=== PATIENT | male | born 1940 | race Caucasian/White ===

== ENCOUNTER 2021-11-12 19:43 | Inpatient (IN) ==
[2021-11-12] MEDS ORDERED: Iohexol 350 (CONTRAST) 500 ML MDV IV ONE (20:11)
[2021-11-12 20:33] LABS: ABS Lymphocytes 0.9 10^3/ul (1.0-4.8); ABS Monocytes 0.9 10^3/ul (0-0.8); ABS Neutrophils 9.4 10^3/ul (1.5-7.7); Eosinophil % 0.3 %; Hematocrit 30 % (42-52); Hemoglobin 10.1 g/dL (14.0-18.0); Lymphocyte % 8.3 %; Mean Corpuscular HGB Conc 34 g/dL (31-36); Mean Corpuscular Hemoglobin 33 pg (27-31); Mean Corpuscular Volume 97 fL (80-94); Mean Platelet Volume 8.1 fL (7.4-10.4); Platelet Count 207 10^3/uL (150-450); Red Blood Count 3.12 10^6 /uL (4.18-5.48); Red Cell Distribution Width 15 % (10-15); White Blood Count 11.4 10^3/uL (3.5-10.8)
[2021-11-12 20:50] LABS: Activated Partial Thrombo Time 27.4 seconds (26.0-38.0); INR 1.07 (0.86-1.15)
[2021-11-12 22:07] LABS: Albumin 3.8 g/dL (3.2-5.2); Albumin/Globulin Ratio 1.7 (1-3); Globulin 2.3 g/dL (2-4); HDL Cholesterol 50.2 mg/dL; Potassium 3.9 mmol/L (3.5-5.0); Total Bilirubin 1.1 mg/dL (0.2-1.0); Total Protein 6.1 g/dL (6.4-8.9); eGFR CKD-EPI 76.5 (>60)
[2021-11-12] MEDS ORDERED: Ondansetron 4 mg VIAL 2 MG/ML 2 ml VIAL IV PRN (22:45)
[2021-11-13 00:40] LABS: High Sensitivity Troponin 1 Hr 122 pg/mL (<20)
[2021-11-13 01:59] LABS: Urine Appearance Clear; Urine Bilirubin Negative (Negative); Urine Blood 2+ (Negative); Urine Color Yellow; Urine Glucose Negative (Negative); Urine Ketones Negative (Negative); Urine Nitrite Negative (Negative); Urine Protein Negative (Negative); Urine Specific Gravity 1.039 (1.002-1.030); Urine Urobilinogen Negative (Negative)
[2021-11-13 02:05] LABS: Urine Bacteria Absent (Absent); Urine Red Blood Cell Absent (Absent); Urine White Blood Cell Absent (Absent)
[2021-11-13] MEDS: Nystatin TOP POWDER 15 GM BTL TOPICAL SCH ×2 (09:27→21:40)
[2021-11-13 10:15] LABS: ABS Basophils 0.1 10^3/ul (0-0.2); ABS Eosinophils 0.1 10^3/ul (0-0.6); ABS Monocytes 0.7 10^3/ul (0-0.8); ABS Neutrophils 4.7 10^3/ul (1.5-7.7); Eosinophil % 1.8 %; Hematocrit 35 % (42-52); Hemoglobin 11.6 g/dL (14.0-18.0); Lymphocyte % 15.5 %; Mean Corpuscular HGB Conc 33 g/dL (31-36); Mean Corpuscular Hemoglobin 32 pg (27-31); Mean Corpuscular Volume 97 fL (80-94); Mean Platelet Volume 8.6 fL (7.4-10.4); Nucleated Red Blood Cells % 0.1; Platelet Count 214 10^3/uL (150-450); Red Cell Distribution Width 15 % (10-15); White Blood Count 6.6 10^3/uL (3.5-10.8)
[2021-11-13 10:23] LABS: ALT 32 U/L (7-52); AST 98 U/L (13-39); Albumin 3.7 g/dL (3.2-5.2); Albumin/Globulin Ratio 1.6 (1-3); Alkaline Phosphatase 77 U/L (35-149); Anion Gap 8 mmol/L (2-11); Blood Urea Nitrogen 17 mg/dL (6-24); CO2 Carbon Dioxide 26 mmol/L (22-32); Chloride 103 mmol/L (101-111); Globulin 2.3 g/dL (2-4); Glucose 86 mg/dL (70-100); Magnesium 1.9 mg/dL (1.9-2.7); Potassium 4.1 mmol/L (3.5-5.0); Sodium 137 mmol/L (135-145); eGFR CKD-EPI 90.7 (>60)
[2021-11-13 11:26] LABS: High Sensitivity Troponin 1 Hr 94 pg/mL (<20)
[2021-11-13] MEDS ORDERED: Perflutren Lipid Microsphere 3 ML VIAL ONE (12:17)
[2021-11-13 13:28] LABS: High Sensitivity Troponin 3 Hr 97 pg/mL (<20)
[2021-11-13 20:55] LABS: % Iron Saturation 31 % (15-55); Iron 80 ug/dL (50-212); Total Iron Binding Capacity 258 mcg/dL (250-450); Transferrin 184 mg/dL (203-362); Unsaturated Iron Binding 178 ug/dL
[2021-11-13 21:21] LABS: Folate > 20.00 ng/mL (5.90-24.80)
[2021-11-13 21:22] LABS: Vitamin B12 544 pg/mL (180-914)
[2021-11-14 06:51] LABS: Hematocrit 36 % (42-52); Hemoglobin 12.1 g/dL (14.0-18.0); Mean Corpuscular HGB Conc 34 g/dL (31-36); Mean Corpuscular Hemoglobin 33 pg (27-31); Mean Corpuscular Volume 98 fL (80-94); Mean Platelet Volume 8.4 fL (7.4-10.4); Platelet Count 204 10^3/uL (150-450); Red Blood Count 3.67 10^6 /uL (4.18-5.48); Red Cell Distribution Width 15 % (10-15); White Blood Count 5.8 10^3/uL (3.5-10.8)
[2021-11-14 07:10] LABS: Calcium 9.4 mg/dL (8.6-10.3); Magnesium 2.1 mg/dL (1.9-2.7); Potassium 4.2 mmol/L (3.5-5.0); eGFR CKD-EPI 87.3 (>60)
[2021-11-14] MEDS: Enoxaparin 40 MG/0.4 ML SYR SUBCUT SCH (15:30)
[2021-11-14] MEDS: Nystatin TOP POWDER 15 GM BTL TOPICAL SCH ×2 (15:33→21:48)
[2021-11-15 05:34] LABS: ABS Eosinophils 0.2 10^3/ul (0-0.6); ABS Lymphocytes 2.2 10^3/ul (1.0-4.8); ABS Monocytes 0.6 10^3/ul (0-0.8); ABS Neutrophils 3.9 10^3/ul (1.5-7.7); Eosinophil % 2.7 %; Hematocrit 37 % (42-52); Hemoglobin 12.4 g/dL (14.0-18.0); Lymphocyte % 31.9 %; Mean Corpuscular HGB Conc 34 g/dL (31-36); Mean Corpuscular Hemoglobin 33 pg (27-31); Mean Corpuscular Volume 99 fL (80-94); Mean Platelet Volume 9.4 fL (7.4-10.4); Platelet Count 143 10^3/uL (150-450); Red Blood Count 3.73 10^6 /uL (4.18-5.48); Red Cell Distribution Width 15 % (10-15)
[2021-11-15 05:35] LABS: Blood Urea Nitrogen 22 mg/dL (6-24); CO2 Carbon Dioxide 27 mmol/L (22-32); Calcium 9.2 mg/dL (8.6-10.3); Chloride 104 mmol/L (101-111); Glucose 82 mg/dL (70-100); Sodium 138 mmol/L (135-145); eGFR CKD-EPI 87.6 (>60)
[2021-11-15 05:38] LABS: Anion Gap 7 mmol/L (2-11)
[2021-11-15 07:46] LABS: Magnesium 1.9 mg/dL (1.9-2.7); Potassium Redraw 4.3 mmol/L (3.5-5.0)
[2021-11-15] MEDS: Enoxaparin 40 MG/0.4 ML SYR SUBCUT SCH (15:13)
[2021-11-15] MEDS: Nystatin TOP POWDER 15 GM BTL TOPICAL SCH ×2 (15:16→22:27)
[2021-11-16 05:19] LABS: ABS Basophils 0.1 10^3/ul (0-0.2); ABS Eosinophils 0.2 10^3/ul (0-0.6); ABS Lymphocytes 2.2 10^3/ul (1.0-4.8); ABS Monocytes 0.6 10^3/ul (0-0.8); ABS Neutrophils 3.7 10^3/ul (1.5-7.7); Eosinophil % 3.1 %; Hematocrit 35 % (42-52); Lymphocyte % 32.2 %; Mean Corpuscular HGB Conc 34 g/dL (31-36); Mean Corpuscular Hemoglobin 33 pg (27-31); Mean Corpuscular Volume 98 fL (80-94); Mean Platelet Volume 8.5 fL (7.4-10.4); Platelet Count 214 10^3/uL (150-450); Red Blood Count 3.62 10^6 /uL (4.18-5.48); Red Cell Distribution Width 15 % (10-15); White Blood Count 6.9 10^3/uL (3.5-10.8)
[2021-11-16 05:42] LABS: Calcium 8.9 mg/dL (8.6-10.3); Magnesium 1.8 mg/dL (1.9-2.7); Potassium 4.3 mmol/L (3.5-5.0); eGFR CKD-EPI 80.4 (>60)
[2021-11-16] MEDS: Nystatin TOP POWDER 15 GM BTL TOPICAL SCH ×2 (09:56→23:56)
[2021-11-16] MEDS ORDERED: LORazepam 2 mg VIAL 1 ml IV PUSH ONE (13:06)
[2021-11-16] MEDS ORDERED: Lorazepam PYXIS KEY PRN (13:06)
[2021-11-16] MEDS: Enoxaparin 40 MG/0.4 ML SYR SUBCUT SCH (13:40)
[2021-11-17 06:39] LABS: Calcium 9.4 mg/dL (8.6-10.3); Potassium 4.4 mmol/L (3.5-5.0); eGFR CKD-EPI 81.4 (>60)
[2021-11-17] MEDS: Nystatin TOP POWDER 15 GM BTL TOPICAL SCH (09:33)
[2021-11-17 10:56] LABS: Rapid COVID-19 Molecular Undetected (Undetected)
[2021-11-17 15:13] VITALS: BP 113/63
== END 2021-11-17 14:00 | DRG 65 ==
LOC: ED 19:43 → EDHOLD 22:45 → SUATTDRO 22:45 → MEDTELE 11-13 02:40
PROVIDERS: ADMIT Student in an Organized Health Care Education/Training Program; ATTEND Student in an Organized Health Care Education/Training Program

== ENCOUNTER 2022-05-27 01:15 | Observation (INO) ==
[2022-05-27] MEDS ORDERED: Ondansetron ODT 4 mg TAB 4 MG TAB SL PRN (03:48)
[2022-05-27] MEDS ORDERED: Lorazepam PYXIS KEY PRN (03:56)
[2022-05-27] MEDS ORDERED: Scopolamine 1 mg/72hr PATCH TRANSDERM SCH (04:00)
[2022-05-27 06:22] LABS: ABS Monocytes 0.9 10^3/ul (0-0.8); Eosinophil % 0.5 %; Hematocrit 28 % (42-52); Hemoglobin 9.4 g/dL (14.0-18.0); Lymphocyte % 10.8 %; Mean Corpuscular HGB Conc 33 g/dL (31-36); Mean Corpuscular Hemoglobin 33 pg (27-31); Mean Corpuscular Volume 98 fL (80-94); Mean Platelet Volume 7.7 fL (7.4-10.4); Platelet Count 227 10^3/uL (150-450); Red Blood Count 2.88 10^6 /uL (4.18-5.48); Red Cell Distribution Width 16 % (10-15); White Blood Count 8.9 10^3/uL (3.5-10.8)
[2022-05-27 06:31] LABS: Activated Partial Thrombo Time 28.4 seconds (26.0-38.0); INR 1.07 (0.88-1.18)
[2022-05-27 07:28] LABS: Albumin 3.9 g/dL (3.2-5.2); Albumin/Globulin Ratio 1.7 (1-3); Calcium 8.8 mg/dL (8.6-10.3); Creatinine, Serum 0.91 mg/dL (0.67-1.17); Globulin 2.3 g/dL (2-4); Potassium 4.1 mmol/L (3.5-5.0); Total Bilirubin 1.4 mg/dL (0.2-1.0); Total Protein 6.2 g/dL (6.4-8.9); eGFR CKD-EPI 84.7 (>60)
[2022-05-27] MEDS: Morphine ORAL CONCENTRATE 5 MG/0.25 ML ORAL.SYRIN SL PRN ×2 (08:20→15:43)
[2022-05-27] MEDS: LORazepam 2 mg VIAL 1 ml IV PUSH PRN ×3 (09:41→23:43)
[2022-05-28] MEDS: LORazepam 2 mg VIAL 1 ml IV PUSH PRN ×3 (05:11→21:33)
[2022-05-28] MEDS ORDERED: Lorazepam PYXIS KEY PRN (15:38)
[2022-05-28] MEDS ORDERED: LORazepam 2 mg VIAL 1 ml IV PUSH ONE (15:38)
[2022-05-29] MEDS: LORazepam 2 mg VIAL 1 ml IV PUSH PRN (03:54)
[2022-05-29 13:14] VITALS: BP 122/67
== END 2022-05-29 14:45 ==
LOC: ED 01:15 → EDHOLD 01:15 → SUATTDRO 03:48 → EDHOLD 08:11 → MED 08:20
PROVIDERS: ADMIT Internal Medicine; ATTEND Internal Medicine